=== PATIENT | female | born 1940 | race African-American/Black ===

== ENCOUNTER → 2016-05-15 | Day surgery (SDC) | payer MEDICARE, BC ==
[~2016-05-15] MED LIST: ASPI325T PO; CALC1CHW30 CHEW; CHOL1CHW5 CHEW; DETR4CAP PO; GNPCAP19 PO; HYDR-3516 PO; LIDOCAINE HCL 1% PF 30 ML VIAL INFIL ONE; PROPOFOL 200 MG/20 ML AMP IV ONE; PYRI100T19 PO; SODIUM CHLORIDE 0.9% 10 ML VIAL ONE; TRAM50TA PO; VALS1TAB64 PO; VITA500C9 CHEW; methylPREDNISolone ACETATE 80 MG/ML VIAL ONE
--- NOTE | 2016-05-19 06:21 | M6 ---
cc: JOSELIN PADILLA M.D. DATE: 05/15/2016 DATE OF : 1940 PROCEDURE Fluoroscopically guided L5-S1 translaminar epidural steroid injection. History and physical was completed and signed. Consent was signed. Procedure site was marked. Medications were listed and reconciled. Pain score was recorded. Allergies were noted. Time out was taken. Fluoroscopy time was recorded where applicable. Sedation was administered or directed by Dr. Padilla. The patient was given oxygen. The patient was monitored by a registered nurse. Total procedure time was greater than 15 minutes. PROCEDURE NOTE: IV was started, blood pressure cuff, pulse oximeter and EKG were applied. The patient was placed in the prone position on a John table sedated with small amounts of propofol titrated to effect. Vital signs were monitored and remained stable throughout the procedure. The lumbar area was prepped with alcohol and 10% Betadine solution, draped with sterile drapes. Fluoroscopy was used to visualize the L5-S1 translaminar space. The skin was infiltrated with 1% Xylocaine using a 27 gauge needle then a 3-1/2 inch 18-gauge Mcgee needle was advanced using fluoroscopic guidance and the tqht-nv-vamkwhchwl technique into the epidural space at L5-S1 slightly to the left of the midline. There was negative aspiration for blood or any other type of fluid and the patient was given 10 mL of half percent Xylocaine, 80 mg of Depo-Medrol. Following this the patient was taken to the recovery room with stable vital signs neurologically intact. W. MD JEANNETTE Quan/YURIY /9:12 AM /6:19 AM
--- NOTE | 2016-05-19 06:25 | M5 ---
cc: JOSELIN FABIAN M.D. DATE OF CONSULTATION: 05/15/2016 DATE OF : 1940. Vital signs were taken including a pain score. Medications were checked and reconciled. Past medical history and past surgical history were updated. Allergies were updated. Any new imaging studies were reviewed. Referring physician records were reviewed. HISTORY: Ms. Eli has some low back pain and lower extremity pain left greater than right, for which we are treating her, but she is also complaining of posterior neck pain aggravated by turning from side to side. She is denying significant radiating pain out into the upper extremities. On physical exam she has restricted range of motion with [id number] turning. She also has increased neck pain with cervical extension. She has some mild tenderness to palpation in the posterior cervical musculature and trapezius musculature. IMPRESSION Probable underlying cervical facet joint arthropathy. RECOMMENDATIONS Fluoroscopically guided diagnostic bilateral cervical facet joint injections after which we will carefully evaluate the patient immediately and with followup. W. MD JEANNETTE Quan/YURIY /9:14 AM /6:19 AM
== END | disposition home or self-care (01) ==
LOC: PHSDC 08:09
PROVIDERS: ATTEND Pain Medicine Interventional Pain Medicine
DX: M54.5 Low back pain (principal); M54.2 Cervicalgia
CPT/HCPCS: 62323; 99152; J1040